=== PATIENT | male | born 1965 | race Caucasian/White ===

== ENCOUNTER → 2019-12-22 16:41 | Outpatient (BNVA) | payer BC, SELFPAY | PROVIDERS: Family Provider Internal Medicine; PCP Internal Medicine; Visit Provider Internal Medicine | DX: R63.1 Polydipsia (principal); E11.9 Type 2 diabetes mellitus without complications; R30.0 Dysuria; R53.83 Other fatigue; Z83.3 Family history of diabetes mellitus | CPT/HCPCS: 80053; 81000; 83036; 84153; 84443; 85025 ==

== ENCOUNTER 2020-01-01 11:33 | Emergency (ER) | payer BC, SELFPAY ==
[2020-01-01 11:38] VITALS: BP 147/85; PULSE 72; RESP 16; TEMP 36.6; O2SAT 100; BMI 22.7
--- NOTE | 2020-01-01 12:10 | XR_ITS ---
WS: [id number] PORTABLE CHEST HISTORY: chest pain COMPARISON: None available. Lungs are clear and well expanded. No pleural effusion or pneumothorax. Cardiac size: Normal. Mediastinum/Aorta: Normal mediastinum. No osseous abnormality seen. XR/XR chest 1V portable [id number] IMPRESSION: Unremarkable portable chest.
--- NOTE | 2020-01-01 12:10 | ECG_ITS ---
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 Measurements Intervals [place] Rate: 82 P: 87 [place]: 122 QRS: 83 QRSD: 88 T: 59 QT: 361 QTc: 424 Interpretive Statements SINUS RHYTHM WITH SINUS ARRHYTHMIA POSSIBLE LEFT ATRIAL ENLARGEMENT [-0.1mV P WAVE IN V1/V2] NONSPECIFIC T-WAVE ABNORMALITY No previous ECG available for comparison Electronically Signed On 01-01-2020 18:49:05 CDT by Johann Mccartney M.D. [id number]
[2020-01-01 12:15] VITALS: BP 121/71; PULSE 73; RESP 20; O2SAT 99
[2020-01-01 12:37] LABS: Basophils % 0.5 %; Eosinophils # 0.1 10^3/uL (0.0-0.8); Hematocrit 40.1 % (42.0-52.0); Hemoglobin 13.6 g/dL (11.7-16.6); Lymphocytes # 1.5 10^3/uL (0.8-4.8); Lymphocytes % 20.6 %; Mean Corpuscular HGB Conc 33.9 g/dL (30.0-36.0); Mean Corpuscular Hemoglobin 30.2 pg (28.0-34.0); Mean Corpuscular Volume 89.1 fL (80-94); Mean Platelet Volume 8.5 fL (7.4-10.4); Monocytes # 0.5 10^3/uL (0.2-0.9); Monocytes % 6.7 %; Neutrophils # 5.21 10^3/uL (1.8-7.7); Neutrophils % 71.1 %; Nucleated Red Blood Cells % 0 %; Platelet Count 261 10^3/cmm (130-400); Red Cell Distribution Width 12.4 % (12.1-15.1); White Blood Count 7.3 10^3/uL (4.0-10.0)
[2020-01-01 12:43] LABS: INR 0.98 (0.8-1.2)
[2020-01-01 12:47] LABS: D Dimer <= 0.27 ug/mIFEU (0-0.59)
[2020-01-01 12:52] LABS: Troponin(5th) Baseline 6 ng/L (0-15)
[2020-01-01 13:00] LABS: Alanine Aminotransferase 19 U/L (0-41); Albumin Level 4.8 g/dL (3.5-5.2); Alkaline Phosphatase 54 IU/L (40-130); Anion Gap 13.3 (5-19); Aspartate Amino Transferase 19 U/L (0-40); Blood Urea Nitrogen 11 mg/dL (6-20); Calcium 9.5 mg/dL (8.5-10.5); Carbon Dioxide 26 mmol/L (22-29); Chloride 103 mmol/L (98-107); Creatinine Clr Calc Pharmacy 83.0604; Glomerular Filtration Rate 70.3 mL/min (90-130); Glucose 106 mg/dL (65-115); Lipase 38 U/L (13-60); NT Pro B Type Natriuretic Pept 35 pg/mL (0-125); Osmolality Calculated 286 mOsm/kg (285-295); Potassium 4.3 mmol/L (3.5-5.1); Sodium 138 mmol/L (136-145); Total Bilirubin 0.4 mg/dL (0.15-1.2); Total Protein 6.8 g/dL (6.6-8.7)
[2020-01-01 13:33] VITALS: BP 106/71; PULSE 84; RESP 13; O2SAT 96
[2020-01-01 13:56] LABS: Add Urine Microscopic? NO
[2020-01-01 14:08] LABS: Bilirubin Urine Neg (Negative); Blood Urine Neg (Negative); Glucose Urine UA Norm (Normal); Ketones Urine Negative (Negative); Leukocyte Esterase Urine Negative (Negative); Nitrate Urine Negative (Negative); Protein Urine Neg (Negative); Sulfosalicylic Acid Urine Negative (Negative); Urine Appearance Clear (CLEAR); Urine Color Straw (Yellow); Urobilinogen Urine Norm (Negative); pH Urine 8 (5-7)
--- NOTE | 2020-01-01 14:10 | ECG_ITS ---
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 Measurements Intervals [place] Rate: 76 P: 73 MD: 124 QRS: 75 QRSD: 93 T: 60 QT: 381 QTc: 431 Interpretive Statements SINUS RHYTHM Compared to ECG 01/01/2020 11:37:30 Sinus arrhythmia no longer present T-wave abnormality no longer present Electronically Signed On 01-01-2020 19:18:14 CDT by Johann Mccartney M.D. [id number]
[2020-01-01 15:02] LABS: Troponin 5 2HR Delta 0 ABS# (0-10)
[2020-01-01 16:26] VITALS: BP 109/72; PULSE 68; RESP 16; TEMP 36.7
--- NOTE | 2020-01-03 11:39 | W.ED.CHESTPA ---
HPI - Chest Pain General: Chief Complaint: Chest Pain Stated Complaint: CHEST PAIN Time Seen by Provider: 01/01/20 11:51 History of Present Illness: HPI narrative: This patient is a very pleasant 54-year-old male who comes in with multiple concerns. He has been having some chest pain off and on. 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 He does say that he has had a problem with alcohol in the past. He had gotten that under control but with the COVID pandemic he was under more stress and started drinking heavily again. Several weeks ago however, he quit drinking again. Since then he has not felt as well as he thinks he should. He has had shortness of breath with light exertion which is very atypical for him. He is had some strange symptoms like tingling in various parts of his body. He has had excessive thirst. He is having some difficulty swallowing at times. He does have a history of some anxiety and has been taking Xanax which is prescribed by his primary care doctor. He has been eating extremely healthy diet. His only prescription medicine is the Xanax and he also takes loratadine and Tylenol as needed. MD complaint: chest pain and other (As above) Pertinent past history: other (Anxiety, alcohol abuse currently in remission) Onset (ago): week(s) (A few) Timing of current episode: episodic Onset: during rest Pain location: substernal Severity: moderate Quality: heaviness Relieving factors: nothing Exacerbating factors: nothing Associated symptoms: Deny abdominal pain, fever(s), nausea or vomiting Review of Systems General: Reports: 10 or more systems reviewed and unremarkable except in HPI and below Const: Reports: fatigue; Denies: fever(s), chills or malaise Eyes: Denies: change in vision ENMT: Denies: odynophagia Card: Reports: chest pain and dyspnea on exertion; Denies: swelling of feet/ankles Resp: Denies: productive cough or non-productive cough GI: Denies: abdominal pain, nausea or vomiting : Denies: flank pain Musc: Reports: other (Tightness in the calves); Denies: neck pain or back pain Skin/Breast: Denies: rash Neuro: Reports: other (Intermittent shooting pains in the extremities); Denies: headache(s), numbness in extremities or weakness in extremities Psych: Reports: anxiety [place]/Lymph: Denies: easy bruising or easy bleeding [facility] PFSH: Medical History ANITA (generalized anxiety disorder) Inguinal hernia Surgical History S/P nasal surgery Family History Grandmother Diabetes Other Cancer Social History Smoking and tobacco status: never smoked Alcohol intake: former Last alcohol use date: 12/08/19 Household members: spouse Marital status: Current occupational status: employed History of recent travel: No Physical Exam Const: COMMON NORMALS: no acute distress, patient oriented x3, no limitations and alert GENERAL APPEARANCE: cooperative and comfortable HENMT: HEAD & SCALP: normal to inspection FACE & SINUS: normal facial exam Eye: GENERAL EYE: appearance normal, both eyes and all related structures Neck/C-Spine: COMMON NORMALS: supple, no meningeal signs and no JVD Chest: COMMONS NORMALS: normal inspection of the chest Resp: COMMON NORMALS: normal respiratory effort, No use of accessory muscles and clear to auscultation bilaterally AUSCULTATION: clear to auscultation bilaterally Cardio: COMMON NORMALS: no JVD, regular rate, regular rhythm and No murmurs present (Cardio) RATE: regular rate RHYTHM: regular rhythm GI: COMMON NORMALS: Normal to inspection, nondistended, normoactive bowel sounds present, Soft to palpation and non-tender INSPECTION: Yes normal to inspection AUSCULTATION: Yes normoactive bowel sounds PALPATION: Yes Soft to palpation Back/Pelvis: COMMON NORMALS: thoracic and lumbar spine normal to inspection Extremity: COMMON NORMALS: normal to inspection Neuro: COMMON NORMALS: patient oriented x3, moves all extremities, no focal motor deficits and no sensory deficits noted SENSORIUM/ORIENTATION: Yes alert MENINGEAL SIGNS: Yes no meningeal signs Psych: COMMON NORMALS: mental status grossly normal, cooperative and normal affect Skin: COMMON NORMALS: no rashes or lesions noted and turgor normal GENERAL SKIN EXAM: no rashes or lesions noted and turgor normal Course ED course: This is a very healthy appearing individual who presents with multiple complaints. He has been having chest pain and exertional dyspnea which is unusual for him. His cardiac work-up is completely unremarkable. D-dimer was totally negative. Chest x-ray was clear. I did recommend seeing a reservoir engineering consultant for further evaluation of the symptoms. He also has complaints of some numbness and tingling. Neuro exam is normal. He was concerned this could be related to vitamin deficiencies and if that is the case his excellent diet should correct that problem. He is also having some difficulty swallowing at times. I recommended that he follow-up and discuss getting a endoscopy with his primary care. Overall he looks well and I am sure that some of this is related to anxiety. He agrees with that assessment. He has a good counselor that he is very comfortable with and feels like he is making good progress there. He is also doing well being without alcohol use. He will return if he has any new or worse symptoms and will follow up with his primary care provider. Vital Signs: Vital signs: Vital Signs Temperature 98.1 F 01/01/20 16:26 Pulse Rate 68 01/01/20 16:26 Respiratory Rate 16 01/01/20 16:26 Blood Pressure 109/72 01/01/20 16:26 Pulse Oximetry 96 01/01/20 13:33 MDM - Chest Pain Lab Data: Labs: Lab Results 01/01/20 01/01/20 01/01/20 Range/Units 12:22 12:22 12:22 WBC 7.3 (4.0-10.0) 10^3/ uL RBC 4.50 (4.1-5.3) 10^6/u L Hgb 13.6 (11.7-16.6) g/dL Hct 40.1 L (42.0-52.0) % MCV 89.1 (80-94) fL MCH 30.2 (28.0-34.0) pg MCHC 33.9 (30.0-36.0) g/dL RDW 12.4 (12.1-15.1) % Plt Count 261 (130-400) 10^3/c mm MPV 8.5 (7.4-10.4) fL Neut % (Auto) 71.1 % Lymph % (Auto) 20.6 % [place] % (Auto) 6.7 % Eos % (Auto) 1.0 % Baso % (Auto) 0.5 % Neut # (Auto) 5.21 (1.8-7.7) 10^3/u L Lymph # (Auto) 1.5 (0.8-4.8) 10^3/u L [place] # (Auto) 0.5 (0.2-0.9) 10^3/u L Eos # (Auto) 0.1 (0.0-0.8) 10^3/u L Baso # (Auto) 0.0 (0.0-0.1) 10^3/u L Nucleated RBC % (a uto) 0 % Nucleated RBCs # 0.0 /100WBC PT 13.30 (12.1-14.9) SECO NDS INR 0.98 (0.8-1.2) D-Dimer <= 0.27 (0-0.59) ug/mIFE U Sodium 138 (136-145) mmol/L Potassium 4.3 (3.5-5.1) mmol/L Chloride 103 (98-107) mmol/L Carbon Dioxide 26 (22-29) mmol/L Anion Gap 13.3 (5-19) BUN 11 (6-20) mg/dL Creatinine 1.1 (0.7-1.2) mg/dL GFR Calculation 70.3 L (90-130) mL/min Glucose 106 (65-115) mg/dL Calculated Osmolal ity 286 (285-295) mOsm/k g Calcium 9.5 (8.5-10.5) mg/dL Total Bilirubin 0.4 (0.15-1.2) mg/dL AST 19 (0-40) U/L ALT 19 (0-41) U/L Alkaline Phosphata se 54 (40-130) IU/L Troponin T Baselin e (0-15) ng/L Troponin T 120 Min [place] (0-15) ng/L Delta Troponin T (0-10) ABS# NT-Pro-B Natriuret Pep 35 (0-125) pg/mL Total Protein 6.8 (6.6-8.7) g/dL Albumin 4.8 (3.5-5.2) g/dL Globulin 2.0 (1.3-4.6) g/dL Lipase 38 (13-60) U/L Urine Color (Yellow) Urine Appearance (CLEAR) Urine pH (5-7) Ur Specific Gravit y (1.005-1.030) Urine Protein (Negative) Urine Glucose (UA) (Normal) Urine Ketones (Negative) Urine Blood (Negative) Urine Nitrate (Negative) Urine Bilirubin (Negative) Prot Sulfosalicyli c Acd (Negative) Urine Urobilinogen (Negative) mg/dL Ur Leukocyte Jenni ase (Negative) 01/01/20 01/01/20 01/01/20 Range/Units 12:22 13:45 14:24 WBC (4.0-10.0) 10^3/ uL RBC (4.1-5.3) 10^6/u L Hgb (11.7-16.6) g/dL Hct (42.0-52.0) % MCV (80-94) fL MCH (28.0-34.0) pg MCHC (30.0-36.0) g/dL RDW (12.1-15.1) % Plt Count (130-400) 10^3/c mm MPV (7.4-10.4) fL Neut % (Auto) % Lymph % (Auto) % [place] % (Auto) % Eos % (Auto) % Baso % (Auto) % Neut # (Auto) (1.8-7.7) 10^3/u L Lymph # (Auto) (0.8-4.8) 10^3/u L [place] # (Auto) (0.2-0.9) 10^3/u L Eos # (Auto) (0.0-0.8) 10^3/u L Baso # (Auto) (0.0-0.1) 10^3/u L Nucleated RBC % (a uto) % Nucleated RBCs # /100WBC PT (12.1-14.9) SECO NDS INR (0.8-1.2) D-Dimer (0-0.59) ug/mIFE U Sodium (136-145) mmol/L Potassium (3.5-5.1) mmol/L Chloride (98-107) mmol/L Carbon Dioxide (22-29) mmol/L Anion Gap (5-19) BUN (6-20) mg/dL Creatinine (0.7-1.2) mg/dL GFR Calculation (90-130) mL/min Glucose (65-115) mg/dL Calculated Osmolal ity (285-295) mOsm/k g Calcium (8.5-10.5) mg/dL Total Bilirubin (0.15-1.2) mg/dL AST (0-40) U/L ALT (0-41) U/L Alkaline Phosphata se (40-130) IU/L Troponin T Baselin e 6 (0-15) ng/L Troponin T 120 Min [place] 6.00 (0-15) ng/L Delta Troponin T 0 (0-10) ABS# NT-Pro-B Natriuret Pep (0-125) pg/mL Total Protein (6.6-8.7) g/dL Albumin (3.5-5.2) g/dL Globulin (1.3-4.6) g/dL Lipase (13-60) U/L Urine Color Straw (Yellow) Urine Appearance Clear (CLEAR) Urine pH 8 H (5-7) Ur Specific Gravit y 1.010 (1.005-1.030) Urine Protein Neg (Negative) Urine Glucose (UA) Norm (Normal) Urine Ketones Negative (Negative) Urine Blood Neg (Negative) Urine Nitrate Negative (Negative) Urine Bilirubin Neg (Negative) Prot Sulfosalicyli c Acd Negative (Negative) Urine Urobilinogen Norm (Negative) mg/dL Ur Leukocyte Jenni ase Negative (Negative) Discharge Plan Discharge Patient Disposition: Home Clinical Impression: Chest pain Qualifiers: Chest pain type: unspecified Qualified Code(s): R07.9 - Chest pain, unspecified Dysphagia Qualifiers: Dysphagia type: unspecified Qualified Code(s): R13.10 - Dysphagia, unspecified Condition: Stable Prescriptions: No Action loratadine [Claritin] 10 mg tablet 10 mg PO DAILY RF: 0 acetaminophen [Tylenol Extra Strength] 500 mg tablet 500 mg PO Q6H PRN (Reason: Pain) RF: 0 alprazolam [Xanax] 0.25 mg tablet 0.25 mg PO ONCE PRN (Reason: anxiety) Qty: 30 RF: 3 Discharge Orders: Discharge Order (Routine); Ordered 01/01/20 Ordered By: Janelle Carbajal Referrals: Cony Ibrahim MD [Physician] - 7-10 days (chest pain) Saurav Galvan MD [Physician] - (establish primary care, referral for endoscopy) Discharge Diet: Usual diet Discharge Activity: Resume usual activity Patient Instructions: Dysphagia, Chest Pain (ED) Activity Restrictions/Additional Instructions: Continue your healthy diet and avoidance of alcohol. Follow-up with reservoir engineering consultant for further evaluation regarding your chest pain and shortness of breath. Follow-up with the primary care provider of your choice, I suggest Dr. Galvan, for overall health care and also for possible referral for an endoscopy to evaluate your swallowing difficulties. Return to the emergency department if any new or worsening symptoms. Discharge Date/Time: 01/01/20 16:29 Coding Level of Care Code ED Reed Worker for Sandeep Montiel
--- NOTE | 2020-01-04 12:14 | DCPLANNER ---
retail assistant store manager had message to schedule a follow up appointment for patient with [facility]. retail assistant store manager called [facility], spoke with Elen, gave clinic patients information. A follow up appointment was scheduled for Saturday, January 18, 2020 at 1:[address] Ibrahim. retail assistant store manager called patient at [phone], a voicemail was left for patient with appointment information.
--- NOTE | 2020-01-21 15:18 | DCPLANNER ---
Patient had a follow up appointment scheduled for 01.18.20 with [facility] - appointment cancelled.
== END 2020-01-01 16:29 | disposition home or self-care (01) ==
PROVIDERS: Emergency Provider Emergency Medicine
DX: R07.9 Chest pain, unspecified (principal); R13.10 Dysphagia, unspecified
CPT/HCPCS: 12345; 36415; 71045; 80053; 81003; 83690; 83880; 84484; 85025; 85378; 85610; 93005; 99283; 99284

== ENCOUNTER → 2020-01-12 08:44 | Outpatient (BNVA) | payer BC, SELFPAY | PROVIDERS: Visit Provider Counselor Professional | DX: F41.1 Generalized anxiety disorder (principal); F10.10 Alcohol abuse, uncomplicated | CPT/HCPCS: 90791 ==

== ENCOUNTER → 2020-01-21 10:28 | Outpatient (BNVA) | payer BC, SELFPAY | PROVIDERS: Visit Provider Family Medicine | DX: G62.9 Polyneuropathy, unspecified (principal) | CPT/HCPCS: 82607; 82746; 84443 ==

== ENCOUNTER → 2020-02-09 10:45 | Outpatient (BNVA) | payer BC, SELFPAY | PROVIDERS: Visit Provider Psychiatry & Neurology Psychiatry | DX: F41.1 Generalized anxiety disorder (principal); F10.11 Alcohol abuse, in remission | CPT/HCPCS: 99214 ==

== ENCOUNTER 2020-02-17 08:05 | Outpatient (CLI) | payer BC, SELFPAY ==
--- NOTE | 2020-02-17 08:19 | MR_ITS ---
WS: [id number] MRI HEAD WITHOUT CONTRAST TECHNIQUE: Sagittal T1, T2 axial, T2 axial FLAIR, axial and coronal T1 images, axial susceptibility w eighted imaging, axial diffusion weighted images, and coronal T2 images were obtained. CLINICAL INFORMATION: NEUROPATHY COMPARISON: None. FINDINGS: No evidence of restricted diffusion to suggest acute ischemia. Ventricular system and basal cisterns are patent. No suspicious intracranial signal abnormalities. Normal mcdonald-white differentiation. Mild parenchymal volume loss. Normal posterior fossa. Normal vascular flow voids at the skull base. No ext ra-axial fluid collections. Paranasal sinuses and mastoid air cells well aerated. Retention cyst right maxillary sinus measuring 1.7 CM. Normal hemosiderin on the susceptibility weighted images. Normal optic chiasm and pituitary i nfundibulum. Temporal lobes and hippocampal formations are normal in appearance. No asymmetric hippoc ampal atrophy. MR/MR head wo con* [id number] IMPRESSION: 1. No evidence of restricted diffusion to suggest acute ischemia. 2. No suspicious intracranial signal abnormalities. Mild parenchymal volume lo ss. 3. Retention cyst right maxillary sinus measuring 1.7 CM. 4. No hemosiderin on susceptibly weighted images. 5. Temporal lobes and hippocampal formations are normal in appearance.
== END 2020-02-17 08:06 | disposition home or self-care (01) ==
LOC: RADWPI 08:09
PROVIDERS: PCP Family Medicine; Visit Provider Family Medicine
DX: G62.9 Polyneuropathy, unspecified (principal); J34.1 Cyst and mucocele of nose and nasal sinus
CPT/HCPCS: 70551

== ENCOUNTER → 2020-04-05 14:18 | Outpatient (BNVA) | payer OTHER, SELFPAY | PROVIDERS: PCP Family Medicine; Visit Provider Psychiatry & Neurology Psychiatry | DX: F10.11 Alcohol abuse, in remission (principal); F41.1 Generalized anxiety disorder | CPT/HCPCS: 99214 ==

== ENCOUNTER → 2020-06-28 13:49 | Outpatient (BNVA) | payer OTHER, SELFPAY | PROVIDERS: PCP Family Medicine; Visit Provider Psychiatry & Neurology Psychiatry | DX: F41.1 Generalized anxiety disorder (principal); F10.11 Alcohol abuse, in remission | CPT/HCPCS: 99214 ==

== ENCOUNTER → 2020-08-25 11:42 | Outpatient (BNVA) | payer OTHER, SELFPAY | PROVIDERS: PCP Family Medicine; Visit Provider Podiatrist Foot & Ankle Surgery | DX: M25.572 Pain in left ankle and joints of left foot (principal); M25.571 Pain in right ankle and joints of right foot | CPT/HCPCS: 73630 ==

== ENCOUNTER 2021-01-26 14:33 | Outpatient (CLI) | payer OTHER, SELFPAY ==
--- NOTE | 2021-01-30 17:41 | ONC CON_ITS ---
Dr. Dumont New Patient Note Patient: Kavon Kilpatrick Unit #: [id number]: 1965 Dicatated By: Milana Dumont M.D.Date of Visit: Jan 26, 2021 Onc MED New Patient/Consult Referring Physician: Sandhya Stevenson History of Present Illness: Mr. Kavon Kilpatrick, is a 55-year-old gentleman with a history of early stage melanoma involving left calf area, as per patient he had a suspicious lesion on the left calf for which he underwent biopsy which confirmed invasive melanoma subsequently he was referred to Dr. Stevenson, telephone station repairer, for further evaluation and on September 27, 2020 he underwent shave biopsy of right calf area, which confirmed malignant melanoma in situ, lentigo maligna type, closely approaching 1 lateral edge subsequently on November 09, 2020 he underwent excisional biopsy of left leg and right leg calf area, final pathology report confirmed no residual melanoma in situ identified in the right leg calf area excisional skin biopsy and also no residual melanoma identified in the left calf area excisional biopsy so final pathology report for left calf area, as per Dr. Aaron, pathologist was pT1a, NX MX. Patient was referred to oncology clinic for further evaluation. Patient denies any left leg swelling or inguinal lymphadenopathy, denies any bone pain, denies any jaundice, denies any hemoptysis or hematemesis, denies any weight loss, denies any fever chills, denies nausea or vomiting. His past medical history significant for generalized anxiety disorder., Denies smoking or alcohol use.. Past Medical History: Mr. Kilpatrick's medical history consists of anxiety and inguinal hernia. Past Surgical History: Mr. Kilpatrick's surgical/procedural history consists of melanoma excision, nasal surgery, covid vaccine #2 moderna in 2020, and covid vaccine #1 moderna in 2020. Medications: Acetaminophen Extra Strength 1 Tablet (of 500 mg) Oral q 6 hours PRN, ALPRAZolam 1 Tablet (of 0.25 mg) Oral PRN, Loratadine (10 mg) Capsule Oral daily Allergies: Aspirin, Bactrim, Ibuprofen, Procaine HCl, and Sulfa Antibiotics. Social History: Mr. Kilpatrick is . Mr. Kilpatrick has never smoked. He has no history of drinking. Family History: There is no documented family history. Review Of Symptoms: Review of Systems is not available for this patient. Vital Signs: Performed on Jan 26, 2021 16:14: 0, 0, 23.24, 1.95 sq.m, 71 in, 98 %, 65 /min, 18 /min, 134/72 mm(hg), 98.5 F, and 166.6 lbs (HIGH). Performance Status: 0 - Fully active, able to carry on all predisease activities without restrictions. (ECOG) Physical Examination: ENMT - No mouth sores, no thrush, no jaundice, Respiratory - Lungs are clear to auscultation, Cardiovascular - Regular rate and rhythm of heart, Abdomen - Soft, bowel sounds present, Extremities - No visible edema, well-healed surgical scar in the mid calf area on both sides. Lab/Imaging: Most recent lab results are not available for this patient. Impression: History of invasive melanoma, involving left leg calf area, subsequently underwent excisional biopsy. On November 09, 2020 which shows no residual melanoma and final pathology was T1 a, NX MX Melanoma in situ per shave biopsy done on the right calf area on September 27, 2020, follow-up for excisional biopsy done on November 09, 2020 showed no residual melanoma in situ. Generalized anxiety disorder Plan: Discussed with patient regarding his disease status and further treatment option, patient has history of superficial melanoma involving left calf area, as per discussion with pathologist Dr. Aaron, there was a history of invasive melanoma which was superficial with no unfavorable feature and it was T1a lesion and no lymph node was available for evaluation. And biopsy from the right calf area shows melanoma in situ with close margin and follow-up excisional biopsy shows no residual disease. , As per NCCN guidelines in patient with T1a lesion without ulceration or uncertain margins or high mitotic index or lymphovascular invasion, risk of positive sentinel lymph node is less than 5% thus sentinel lymph node biopsy is not recommended. As per discussion with Dr. Stevenson and Dr. Aaron, patient has early melanoma with no ulceration and with favorable factors, and promised to send me the pathology report. case was discussed with Dr. Stevenson, telephone station repairer, thats what she Recommended too but patient has a sister who is a physician, who suggested oncology evaluation, Moreover patient has already undergone gene expression profile testing, ordered by Dr. Stevenson, there is no further recommendations from oncology point of view rather close observation, for which he is being followed by Dr. Stevenson, telephone station repairer. We will see him on as-needed basis Signed By: Milana Dumont M.D. <<Signature on File>>
== END 2021-01-26 14:34 | disposition home or self-care (01) ==
LOC: ONCMED 14:35
PROVIDERS: PCP Family Medicine; Visit Provider Internal Medicine Hematology & Oncology
DX: Z08 Encounter for follow-up examination after completed treatment for malignant neoplasm (principal); Z85.820 Personal history of malignant melanoma of skin; F41.9 Anxiety disorder, unspecified; Z79.899 Other long term (current) drug therapy
CPT/HCPCS: 99205

== ENCOUNTER 2021-08-03 08:05 | Outpatient (CLI) | payer OTHER, SELFPAY ==
--- NOTE | 2021-08-03 08:15 | US_ITS ---
WS: [id number] THYROID ULTRASOUND HISTORY: NECK MASS/SWALLOWING PROBLEM COMPARISON: None available. Right lobe: 1.2 cm x 2.1 cm x 4.3 cm (w x ap x l). Volume: 5.6 cm3. Normal size and echotexture. No significant are dominant nodules are present. Left lobe: 1.5 cm x 1.7 cm x 3.5 cm (w x ap x l). Volume: 4.9 cm3. Normal size and echotexture. No significant or dominant nodules are present. Isthmus: 0.2 cm. US/US thyroid [id number] IMPRESSION: Normal thyroid ultrasound.
== END 2021-08-03 08:06 | disposition home or self-care (01) ==
PROVIDERS: PCP Family Medicine; Visit Provider Family Medicine
DX: R22.1 Localized swelling, mass and lump, neck (principal)
CPT/HCPCS: 76536

== ENCOUNTER 2021-08-16 08:46 | Outpatient (CLI) | payer OTHER, SELFPAY ==
[2021-08-16 09:28] LABS: Basophils # 0.1 10^3/uL (0.0-0.1); Basophils % 0.8 %; Eosinophils # 0.1 10^3/uL (0.0-0.8); Eosinophils % 1.9 %; Hematocrit 39.6 % (42.0-52.0); Hemoglobin 13.4 g/dL (11.7-16.6); Lymphocytes # 1.5 10^3/uL (0.8-4.8); Lymphocytes % 23.1 %; Mean Corpuscular HGB Conc 33.8 g/dL (30.0-36.0); Mean Corpuscular Volume 91.7 fl (80-94); Mean Platelet Volume 8.7 fL (7.4-10.4); Monocytes # 0.5 10^3/uL (0.2-0.9); Monocytes % 7.1 %; Neutrophils # 4.21 10^3/uL (1.8-7.7); Neutrophils % 66.8 %; Nucleated Red Blood Cells % 0 %; Platelet Count 232 10^3/cmm (130-400); Red Blood Count 4.32 10^6/uL (4.1-5.3); Red Cell Distribution Width 12.9 % (12.1-15.1); White Blood Count 6.3 10^3/uL (4.0-10.0)
[2021-08-16 10:05] LABS: Alanine Aminotransferase 18 U/L (0-41); Albumin Level 4.9 g/dL (3.5-5.2); Alkaline Phosphatase 59 IU/L (40-130); Anion Gap 14.9 (5-19); Aspartate Amino Transferase 19 U/L (0-40); Blood Urea Nitrogen 11 mg/dL (6-20); Calcium 9.5 mg/dL (8.5-10.5); Carbon Dioxide 25 mmol/L (22-29); Chloride 102 mmol/L (98-107); Free T4 Free Thyroxine 1.24 ng/dL (0.82-1.77); Globulin 1.4 g/dL (1.3-4.6); Glomerular Filtration Rate 87.9 mL/min (90-130); Glucose 91 mg/dL (65-115); Osmolality Calculated 285 mOsm/kg (285-295); Potassium 3.9 mmol/L (3.5-5.1); Sodium 138 mmol/L (136-145); Total Bilirubin 0.5 mg/dL (0.15-1.2); Total Protein 6.3 g/dL (6.6-8.7)
[2021-08-16 10:10] LABS: Rapid Plasma Reagin Syphilis Nonreactive (Nonreactive)
[2021-08-16 10:11] LABS: Hepatitis A Antibody IgM Non-Reactive (Nonreactive); Hepatitis B Core AB, Total Non-Reactive (Nonreactive); Hepatitis B Surface AB 3.5 (11.5-1000); Hepatitis B Surface Antigen Non-Reactive (Nonreactive); Hepatitis C Virus Antibody Non-Reactive (Nonreactive)
[2021-08-16 11:42] LABS: HIV 1 & 2 Antibody Non-Reactive (Non-Reactiv); HIV 1 & 2 Antigen Non-Reactive (Non-Reactiv)
== END 2021-08-16 08:47 | disposition home or self-care (01) ==
PROVIDERS: PCP Family Medicine; Visit Provider Dermatology
DX: R59.1 Generalized enlarged lymph nodes (principal); R63.4 Abnormal weight loss; R53.83 Other fatigue; Z85.828 Personal history of other malignant neoplasm of skin; Z79.899 Other long term (current) drug therapy
CPT/HCPCS: 36415; 80053; 84439; 84443; 85025; 86592; 86705; 86706; 86709; 86803; 87340; 87806

== ENCOUNTER 2021-08-24 14:58 | Oncology outpatient (recurring) (ONCR) | payer OTHER, SELFPAY | END 2021-09-21 23:59 | disposition home or self-care (01) | PROVIDERS: PCP Family Medicine; Visit Provider Internal Medicine Hematology & Oncology | DX: Z53.9 Procedure and treatment not carried out, unspecified reason (principal) ==

== ENCOUNTER 2023-01-28 15:08 | Outpatient (CLI) | payer OTHER, SELFPAY ==
--- NOTE | 2023-01-28 15:15 | XRR_ITS ---
PROCEDURE INFORMATION: Exam: XR Complete Acute Abdomen Series Including Chest Exam date and time: 01/28/2023 3:43 PM Age: 57 years old Clinical indication: Abdominal pain; Localized; Right lower quadrant (rlq); Patient HX: HX of melanoma; Additional info: Rlq abdominal pain TECHNIQUE: Imaging protocol: Radiologic exam. Complete acute abdomen series, including 2 or more views of the abdomen and a single view chest. COMPARISON: MD bone scan whole body* [id number] 05/02/2018 7:49 AM FINDINGS: Lungs: Normal. No consolidation. Pleural spaces: Normal. No pleural effusions. No pneumothorax. Heart/Mediastinum: Normal. No cardiomegaly. Gastrointestinal tract: Moderate colonic stool burden. No bowel dilation. Intraperitoneal space: Normal. No free air. Bones/joints: Normal. No acute fracture. Soft tissues: Normal. XR/XR abdomen 3V [id number] IMPRESSION: No acute findings. Moderate colonic stool burden.
== END 2023-01-28 15:09 | disposition home or self-care (01) ==
LOC: RAD 15:10
PROVIDERS: PCP Family Medicine; Visit Provider Family Medicine
DX: R10.31 Right lower quadrant pain (principal); Z85.820 Personal history of malignant melanoma of skin
CPT/HCPCS: 74021

== ENCOUNTER 2023-05-16 09:31 | Outpatient (CLI) | payer MEDICAID, SELFPAY ==
--- NOTE | 2023-05-16 09:35 | XR_ITS ---
WS: [id number] Examination: XR foot LT min 3V* [id number] Reason for Exam: M79.673 - Pain in unspecified foot Date: 05/16/2023 Comparison: 08/25/2020 Findings: There is no abnormal soft tissue swelling. The bone density is maintained. There is no acute bony abnormality. I see no fracture. In the interval abnormality involving the left second distal interphalangeal joint is identified. The joint space is narrowed with questionable erosive changes. Impression: No acute bony abnormalities identified. Interval development of abnormality involving the left second distal interphalangeal joint is identif ied with narrowing and some apparent erosive change.
--- NOTE | 2023-05-16 09:35 | XR_ITS ---
WS: [id number] Examination: XR foot RT min 3V* [id number] Reason for Exam: M79.673 - Pain in unspecified foot Date: 05/16/2023 Comparison: August 25, 2020 Findings: There is no soft tissue swelling. The bone density is maintained. The joint spaces are maintained. There is no fracture. There is no dislocation No arthritic changes are noted. Impression: No acute bony abnormality the right foot is identified.
== END 2023-05-16 09:32 | disposition home or self-care (01) ==
LOC: RAD 09:33
PROVIDERS: PCP Family Medicine; Visit Provider Internal Medicine Rheumatology
DX: M79.672 Pain in left foot (principal); M79.671 Pain in right foot
CPT/HCPCS: 73630

== ENCOUNTER → 2024-02-25 13:33 | Outpatient (BNVA) | payer MEDICAID, SELFPAY | PROVIDERS: PCP Family Medicine; Visit Provider Dermatology | DX: L82.1 Other seborrheic keratosis (principal); I78.8 Other diseases of capillaries; L73.8 Other specified follicular disorders; D18.01 Hemangioma of skin and subcutaneous tissue; Z85.820 Personal history of malignant melanoma of skin; Z08 Encounter for follow-up examination after completed treatment for malignant neoplasm; Z85.828 Personal history of other malignant neoplasm of skin; L82.0 Inflamed seborrheic keratosis; L29.89 Other pruritus; L57.0 Actinic keratosis | CPT/HCPCS: 17000; 17110; 99213 ==

== ENCOUNTER 2025-03-10 09:26 | Outpatient (CLI) | payer MEDICAID, SELFPAY ==
--- NOTE | 2025-03-10 09:35 | XR_ITS ---
WS: [id number] Chest 2 views, 03/10/2025 Clinical Data: PERSONAL HX OF MALIGNANT MELANOMA OF SKIN Comparison: Portable chest, 01/01/2020 Findings: No nodules, masses or effusions are seen. The heart is normal. The pulmonary vascularity is not increased. No pneumonia or pneumothorax is seen. XR/XR chest 2V* [id number] Impression: Negative chest.
== END 2025-03-10 09:27 | disposition home or self-care (01) ==
LOC: LAB 09:28
PROVIDERS: PCP Family Medicine; Visit Provider Dermatology
DX: Z85.820 Personal history of malignant melanoma of skin (principal); Z08 Encounter for follow-up examination after completed treatment for malignant neoplasm
CPT/HCPCS: 36415; 71046; 83615